=== PATIENT | female | born 1990 | race Caucasian/White ===

== ENCOUNTER 2019-05-23 07:39 | Day surgery (SDC) | payer SELFPAY ==
[2019-05-20 14:02] LABS: Hematocrit 40.6 % (33.0-51.0); Hemoglobin 13.5 g/dL (11.5-16.0); Mean Corpuscular HGB 28.9 pg (26.0-34.0); Mean Corpuscular HGB Conc 33.3 g/dL (31.5-36.5); Mean Corpuscular Volume 87 fL (80-100); Mean Platelet Volume 11.4 fL (9.1-12.4); Platelet Count 226 K/mm3 (150-400); RDW Coefficient Variation 12.6 % (11.7-14.2); RDW Standard Deviation 39.9 fL (35.1-46.3); Red Blood Cell Count 4.67 M/mm3 (3.80-5.20); White Blood Cell Count 9.21 K/mm3 (4.00-11.30)
[~2019-05-23] VITALS: Ht 162.6 cm; Wt 109.5 kg
[~2019-05-23 07:39] MED LIST: BC PILL; BCP; BUSP10 PO; BUSP5 PO; CYCL10; DOXY100 PO; FAMO20 PO; FERSU300 PO; HYDACE5 PO; HYDMOR2 PO; IBUP400 PO; IBUP800 PO; LOPE2C PO; META800 PO; MULVITMINE PO; NAPR500 PO; ONDA4 PO; OXYACE5T PO; PHENA200 PO; PRED20 PO; PROM25 PO; PSEHYDGUAL PO; RXONDA4ODT MM; SULTRIDS PO; VENL150ER PO; Vitamin D2000 UNIT PO; [UNRECOGNIZED DRUG - OTHER] PO
--- NOTE | 2019-05-23 08:31 | NUR ---
History, Chart, Medications and Allergies reviewed before start of procedure. PT HAS EAR STUDS AND TWO NOSE RINGS THAT SHE STATES CANNOT BE REMOVED AND WOULD LIKE TO TAPE THEM FOR SURGERY. REFUSAL FORM SIGNED.
--- NOTE | 2019-05-23 19:00 | NUR ---
recvd report from previous RN Ines. pt sitting up in bed, tolerating soup, family visiting. pt a/0 x 4, pleasant, denies nausous
--- NOTE | 2019-05-23 19:15 | NUR ---
PT IS POST-OP LAVH. VSS DURING SHIFT. PT HAD DIFFICULTY WITH NAUSEA AND CRAMPING. MEDICATED PER EMAR AND PROVIDED KPAD. NAUSEA AND PAIN GREATLY IMPROVED AFTER INTERVENTIONS AND WAS ABLE TO HAVE A LIGHT MEAL.
--- NOTE | 2019-05-23 20:05 | NUR ---
PT NAUSEOUS/VOMITED X 2 300 ML. HAD ADMINISTERED PO PHENERGAN WITHIN 15 MINUTES PRIOR, NO TABLET VISUALIZED. PT REMAINS NAUSEOUS, WILL MEDICATE PER MAR
[2019-05-24 04:54] LABS: BASOPHILS ABSOLUTE AUTO 0.02 K/mm3 (0.00-0.23); BASOPHILS PERCENT AUTO 0 % (0-2); EOSINOPHILS ABSOLUTE AUTO 0.01 K/mm3 (0.00-0.68); EOSINOPHILS PERCENT AUTO 0 % (0-6); Hematocrit 32.9 % (33.0-51.0); Hemoglobin 10.8 g/dL (11.5-16.0); IMMATURE GRAN ABSOLUTE AUTO 0.04 K/mm3 (0.00-0.10); IMMATURE GRAN PERCENT AUTO 0 % (0-1); LYMPHOCYTES ABSOLUTE AUTO 1.35 K/mm3 (0.84-5.20); LYMPHOCYTES PERCENT AUTO 12 % (21-46); MONOCYTES ABSOLUTE AUTO 0.98 K/mm3 (0.16-1.47); MONOCYTES PERCENT AUTO 9 % (4-13); Mean Corpuscular HGB 28.8 pg (26.0-34.0); Mean Corpuscular HGB Conc 32.8 g/dL (31.5-36.5); Mean Corpuscular Volume 88 fL (80-100); Mean Platelet Volume 11.1 fL (9.1-12.4); NEUTROPHILS ABSOLUTE AUTO 8.74 K/mm3 (1.96-9.15); NEUTROPHILS PERCENT AUTO 78 % (41-73); Platelet Count 217 K/mm3 (150-400); RDW Coefficient Variation 12.7 % (11.7-14.2); RDW Standard Deviation 40.2 fL (35.1-46.3); Red Blood Cell Count 3.75 M/mm3 (3.80-5.20); White Blood Cell Count 11.14 K/mm3 (4.00-11.30)
--- NOTE | 2019-05-24 05:51 | NUR ---
shift summary: vss, no acute changes, pt remains a/0 x 4, pleasant cooperative. pt reports nauseousness and vomiting x 1 at start of shift, medicated per mar with report of relief of nausea. pt reports pain controlled to 2-3/10 per mar. pt up in room x 2, reports no dizziness, slight lightheadedness when first standing, standby assist. pt appears to be sleeping on nurse rounding a great portion of the shift, awakens easily. pt's stayed in room with pt.
[2019-05-24] MEDS ORDERED: Percocet 5-3251 EACH PO (10:44)
[2019-05-24] MEDS ORDERED: PROM25 PO (10:50)
[2019-05-24] MEDS ORDERED: IBU800 MG PO (10:50)
[2019-05-24] MEDS ORDERED: DOCU100 PO (10:51)
[2019-05-24] MEDS ORDERED: Milk Of Ma400 MG/5 M PO (11:29)
--- NOTE | 2019-05-24 12:15 | NUR ---
DISCHARGE PT ESCORTE OUT VIA W/C. PT STATES UNDERSTANDING. PAIN WELL CONTROLLED, VOIDING EASILY, SCANT BLEEDING, PASSING GAS. STATES FEELS READY FOR D/C.
--- NOTE | 2019-05-26 09:50 | NUR ---
05/26/[address] CAME IN FOR HER PORTION OF CASE TO COMPLETE TVT AND CYSTOSCOPY.
== END 2019-05-24 12:20 | disposition home or self-care (01) ==
LOC: ORSCMMR 07:39 → ORD 09:00 → ORSCMMR 09:00 → SURS 13:56 → ORSCMMR 05-24 12:20
PROVIDERS: Obstetrics & Gynecology
PROC: 0UT9FZZ Resection of Uterus, Via Natural or Artificial Opening With Percutaneous Endoscopic Assistance (ICD-10-PCS; principal; 2019-05-23 09:00)
PROC: 0UT7FZZ Resection of Bilateral Fallopian Tubes, Via Natural or Artificial Opening With Percutaneous Endoscopic Assistance (ICD-10-PCS; principal; 2019-05-23 09:00)
PROC: 0TSD0ZZ Reposition Urethra, Open Approach (ICD-10-PCS; principal; 2019-05-23 09:00)
DX: N92.1 Excessive and frequent menstruation with irregular cycle (principal); N39.3 Stress incontinence (female) (male); N94.6 Dysmenorrhea, unspecified; E66.01 Morbid (severe) obesity due to excess calories; Z68.41 Body mass index [BMI] 40.0-44.9, adult
CPT/HCPCS: 36415; 84703; 85025; 85027; 86850; 86900; 86901; 88307; C1771; J0171; J0690; J1100; J1885; J2250; J2405; J2550; J2704; J3010; J7030; J7120

== ENCOUNTER 2019-06-25 11:06 | Emergency (ER) | payer SELFPAY ==
[~2019-06-25] VITALS: Ht 165.1 cm; Wt 111.1 kg
[~2019-06-25 11:06] MED LIST changes: +DOCU100 PO; +IBU800 MG PO; +Milk Of Ma400 MG/5 M PO; +Percocet 5-3251 EACH PO
[2019-06-25] MEDS ORDERED: Augmentin 875-1 EACH PO (11:34)
[2019-06-25] MEDS ORDERED: METR500 PO (11:35)
[2019-06-25 12:14] LABS: Source, Urine Clean Catch
[2019-06-25 12:18] LABS: Bilirubin, Urine Neg (Neg); Blood, Urine Neg (Neg); Glucose Qualitative, Urine Neg (Neg); Ketones, Urine Neg (Neg); Leukocyte Esterase, Urine 2+ (Neg); Nitrite, Urine Neg (Neg); Protein, Urine Neg (Neg); Urobilinogen, Urine NORM (Normal); pH, Urine 6.5 (5.0-8.0)
[2019-06-25 12:46] LABS: BASOPHILS ABSOLUTE AUTO 0.04 K/mm3 (0.00-0.23); BASOPHILS PERCENT AUTO 0 % (0-2); EOSINOPHILS PERCENT AUTO 1 % (0-6); Hematocrit 40.1 % (33.0-51.0); Hemoglobin 12.9 g/dL (11.5-16.0); IMMATURE GRAN ABSOLUTE AUTO 0.03 K/mm3 (0.00-0.10); IMMATURE GRAN PERCENT AUTO 0 % (0-1); LYMPHOCYTES ABSOLUTE AUTO 1.53 K/mm3 (0.84-5.20); LYMPHOCYTES PERCENT AUTO 15 % (21-46); MONOCYTES ABSOLUTE AUTO 0.67 K/mm3 (0.16-1.47); MONOCYTES PERCENT AUTO 6 % (4-13); Mean Corpuscular HGB 28.5 pg (26.0-34.0); Mean Corpuscular HGB Conc 32.2 g/dL (31.5-36.5); Mean Corpuscular Volume 89 fL (80-100); Mean Platelet Volume 11.5 fL (9.1-12.4); NEUTROPHILS ABSOLUTE AUTO 8.13 K/mm3 (1.96-9.15); NEUTROPHILS PERCENT AUTO 77 % (41-73); Platelet Count 232 K/mm3 (150-400); RDW Standard Deviation 42.3 fL (35.1-46.3); Red Blood Cell Count 4.53 M/mm3 (3.80-5.20)
[2019-06-25 12:51] LABS: Appearance, Urine Clear (Clear); Color, Urine Yellow (P-Yellow)
[2019-06-25 12:53] LABS: Bacteria Few /hpf; Red Blood Cells, Urine 0-2 /hpf (0-2); Squamous Epithelial Cells Few /hpf (Few)
[2019-06-25 12:54] LABS: Yeast/Fungi Urine Few /hpf
[2019-06-25 13:05] LABS: Alanine Aminotransfer (ALT/SGP 33 U/L (12-78); Albumin, Blood 3.8 g/dL (3.4-5.0); Albumin/Globulin Ratio 1.1 (0.8-1.8); Alk Phos 110 U/L (50-136); Anion Gap 6 mmol/L (6-16); Aspartate Aminotrans (AST/SGOT 15 U/L (12-37); Bilirubin, Total 0.3 mg/dL (0.1-1.0); Blood Urea Nitrogen 10 mg/dL (8-24); Bun/Creatinine Ratio 13.9 (12.0-20.0); CO2, Blood 26 mmol/L (21-32); Calcium, Blood 8.6 mg/dL (8.5-10.1); Chloride, Blood 106 mmol/L (98-108); Creatinine, Blood 0.72 mg/dL (0.40-1.00); Globulin, Blood 3.6 g/dL (2.2-4.0); Glomerular Filtration Rate >60 (60-); Glucose, Blood 107 mg/dL (70-99); Potassium, Blood 3.8 mmol/L (3.5-5.5); Sodium, Blood 138 mmol/L (136-145); Total Protein, Blood 7.4 g/dL (6.4-8.2)
[2019-06-25 13:58] LABS: Adenovirus F 40/41 Not Detected (NOT DETECT); Astrovirus Not Detected (NOT DETECT); Campylobacter Sp Not Detected (NOT DETECT); Cryptosporidium Not Detected (NOT DETECT); Cyclospora Cayetanensis Not Detected (NOT DETECT); E. Coli O157 Not Detected (NOT DETECT); Entamoeba Histolytica Not Detected (NOT DETECT); Enteroaggregative E. coli-EAEC Not Detected (NOT DETECT); Enteropathogenic E. coli-EPEC Not Detected (NOT DETECT); Enterotoxigenic E. coli-ETEC Not Detected (NOT DETECT); Giardia Lamblia Not Detected (NOT DETECT); Norovirus GI/GII Not Detected (NOT DETECT); Plesiomonas Shigelloides Not Detected (NOT DETECT); Rotavirus A Not Detected (NOT DETECT); Salmonella Sp Not Detected (NOT DETECT); Sapovirus Not Detected (NOT DETECT); Shiga Toxin-prod E. coli-STEC Not Detected (NOT DETECT); Shigella/Enteroin E. coli-EIEC Not Detected (NOT DETECT); Vibrio Cholerae Not Detected (NOT DETECT); Vibrio Sp Not Detected (NOT DETECT); Yersinia Enterocolitica Not Detected (NOT DETECT)
[2019-06-25] MEDS ORDERED: Percocet 5-3251 EACH PO (14:13)
[2019-06-26] MEDS ORDERED: Bentyl20 MG PO (02:37)
== END 2019-06-25 14:32 | disposition home or self-care (01) ==
LOC: ER 11:06
PROVIDERS: Emergency Medicine
DX: K52.9 Noninfective gastroenteritis and colitis, unspecified (principal); R10.12 Left upper quadrant pain; F41.9 Anxiety disorder, unspecified; Z88.5 Allergy status to narcotic agent; Z79.899 Other long term (current) drug therapy
CPT/HCPCS: 0097U; 36415; 74176; 80053; 81001; 83690; 85025; 96361; 96374; 99284-25; J1885; J7120

== ENCOUNTER 2019-06-25 21:21 | Emergency (ER) | payer SELFPAY ==
[~2019-06-25] VITALS: Ht 165.1 cm; Wt 111.1 kg
[~2019-06-25 21:21] MED LIST changes: +Augmentin 875-1 EACH PO; +METR500 PO
[2019-06-26 02:03] LABS: BASOPHILS ABSOLUTE AUTO 0.02 K/mm3 (0.00-0.23); BASOPHILS PERCENT AUTO 0 % (0-2); EOSINOPHILS ABSOLUTE AUTO 0.02 K/mm3 (0.00-0.68); EOSINOPHILS PERCENT AUTO 0 % (0-6); Hematocrit 40.8 % (33.0-51.0); Hemoglobin 12.9 g/dL (11.5-16.0); IMMATURE GRAN ABSOLUTE AUTO 0.04 K/mm3 (0.00-0.10); IMMATURE GRAN PERCENT AUTO 0 % (0-1); LYMPHOCYTES PERCENT AUTO 9 % (21-46); MONOCYTES ABSOLUTE AUTO 0.75 K/mm3 (0.16-1.47); MONOCYTES PERCENT AUTO 5 % (4-13); Mean Corpuscular HGB 28.3 pg (26.0-34.0); Mean Corpuscular HGB Conc 31.6 g/dL (31.5-36.5); Mean Corpuscular Volume 90 fL (80-100); Mean Platelet Volume 11.5 fL (9.1-12.4); NEUTROPHILS ABSOLUTE AUTO 12.81 K/mm3 (1.96-9.15); NEUTROPHILS PERCENT AUTO 85 % (41-73); Platelet Count 230 K/mm3 (150-400); RDW Coefficient Variation 13.1 % (11.7-14.2); RDW Standard Deviation 42.7 fL (35.1-46.3); Red Blood Cell Count 4.56 M/mm3 (3.80-5.20); White Blood Cell Count 15.04 K/mm3 (4.00-11.30)
[2019-06-26] MEDS ORDERED: Bentyl20 MG PO (02:37)
== END 2019-06-26 02:57 | disposition home or self-care (01) ==
LOC: ER 21:21
PROVIDERS: Emergency Medicine
DX: K52.9 Noninfective gastroenteritis and colitis, unspecified (principal); D72.829 Elevated white blood cell count, unspecified; Z88.5 Allergy status to narcotic agent; Z79.899 Other long term (current) drug therapy
CPT/HCPCS: 36415; 85025; 96374; 99283; A9270; J1885

== ENCOUNTER 2022-06-27 00:15 | Emergency (ER) | payer SELFPAY ==
[~2022-06-27] VITALS: Ht 165.1 cm; Wt 95.2 kg
[~2022-06-27 00:15] MED LIST changes: +Bentyl20 MG PO
[2022-06-27] MEDS ORDERED: EPIPEN0.3 MG/0.3 IM (00:56)
[2022-06-27] MEDS ORDERED: Prednisone20 MG PO (00:56)
== END 2022-06-27 03:37 | disposition home or self-care (01) ==
LOC: ER 00:15
DX: L50.0 Allergic urticaria (principal); T37.3X5A Adverse effect of other antiprotozoal drugs, initial encounter; Z88.5 Allergy status to narcotic agent; Z79.899 Other long term (current) drug therapy
CPT/HCPCS: J1200; J2930; J7512

== ENCOUNTER 2022-06-27 11:49 | Emergency (ER) | payer SELFPAY ==
[~2022-06-27] VITALS: Ht 165.1 cm; Wt 95.2 kg
[~2022-06-27 11:49] MED LIST changes: +EPIPEN0.3 MG/0.3 IM; +Prednisone20 MG PO
== END 2022-06-27 13:59 | disposition home or self-care (01) ==
LOC: ER 11:49
DX: L50.0 Allergic urticaria (principal); T36.8X5A Adverse effect of other systemic antibiotics, initial encounter; Z88.5 Allergy status to narcotic agent; Z88.2 Allergy status to sulfonamides; Z88.8 Allergy status to other drugs, medicaments and biological substances; Z79.899 Other long term (current) drug therapy
CPT/HCPCS: A9270; J1200; J2930

== ENCOUNTER 2024-03-02 08:18 | Emergency (ER) | payer SELFPAY ==
[~2024-03-02] VITALS: Ht 165.1 cm; Wt 94.3 kg
[~2024-03-02 08:18] MED LIST changes: +VENL75ER PO
[2024-03-02 09:53] LABS: Source, Urine Clean Catch
[2024-03-02 10:01] LABS: Appearance, Urine Clear (Clear); Bilirubin, Urine Neg (Neg); Blood, Urine Neg (Neg); Color, Urine Yellow (P-Yellow); Glucose Qualitative, Urine Neg (Neg); Ketones, Urine Neg (Neg); Leukocyte Esterase, Urine Neg (Neg); Nitrite, Urine Neg (Neg); Protein, Urine Neg (Neg); Specific Gravity, Urine 1.015 (1.003-1.022); Urobilinogen, Urine NORM (Normal)
[2024-03-02] MEDS ORDERED: Ondansetron HCl 2 MG / ML 2ML Vial IV ONE (10:10)
[2024-03-02] MEDS ORDERED: NS 1,000 ML IV SCH (10:10)
[2024-03-02] MEDS ORDERED: Ketorolac Tromethamine 30mg Vial IV ONE (10:10)
[2024-03-02 10:11] LABS: BASOPHILS ABSOLUTE AUTO 0.04 K/mm3 (0.00-0.23); BASOPHILS PERCENT AUTO 1 % (0-2); EOSINOPHILS ABSOLUTE AUTO 0.06 K/mm3 (0.00-0.68); EOSINOPHILS PERCENT AUTO 1 % (0-6); Hematocrit 43.7 % (33.0-51.0); IMMATURE GRAN ABSOLUTE AUTO 0.03 K/mm3 (0.00-0.10); IMMATURE GRAN PERCENT AUTO 1 % (0-1); LYMPHOCYTES ABSOLUTE AUTO 1.36 K/mm3 (0.84-5.20); LYMPHOCYTES PERCENT AUTO 22 % (21-46); MONOCYTES PERCENT AUTO 6 % (4-13); Mean Corpuscular HGB 31.1 pg (26.0-34.0); Mean Corpuscular HGB Conc 34.3 g/dL (31.5-36.5); Mean Corpuscular Volume 91 fL (80-100); Mean Platelet Volume 11.4 fL (9.1-12.4); NEUTROPHILS ABSOLUTE AUTO 4.38 K/mm3 (1.96-9.15); NEUTROPHILS PERCENT AUTO 70 % (41-73); Platelet Count 169 K/mm3 (150-400); RDW Coefficient Variation 12.4 % (11.7-14.2); RDW Standard Deviation 40.8 fL (35.1-46.3); Red Blood Cell Count 4.83 M/mm3 (3.80-5.20); White Blood Cell Count 6.27 K/mm3 (4.00-11.30)
[2024-03-02 10:38] LABS: Albumin/Globulin Ratio 1.2 (0.8-1.8); Bilirubin, Total 0.2 mg/dL (0.1-1.0); Bun/Creatinine Ratio 17.9 (12.0-20.0); Calcium, Blood 8.5 mg/dL (8.5-10.1); Creatinine, Blood 0.73 mg/dL (0.40-1.00); Globulin, Blood 3.4 g/dL (2.2-4.0); Potassium, Blood 4.2 mmol/L (3.5-5.5); Total Protein, Blood 7.4 g/dL (6.4-8.2)
[2024-03-02 11:24] VITALS: BP 100/63
== END 2024-03-02 11:25 | disposition home or self-care (01) ==
LOC: ER 08:18
PROVIDERS: Physician Assistant
DX: R10.31 Right lower quadrant pain (principal); Z90.710 Acquired absence of both cervix and uterus; Z79.899 Other long term (current) drug therapy; Z88.5 Allergy status to narcotic agent; Z88.1 Allergy status to other antibiotic agents; Z88.8 Allergy status to other drugs, medicaments and biological substances
CPT/HCPCS: 74177; 80053; 81003; 83690; 85025; 96361; 96374-59; 96375; 99284-25; J1885; J2405; J7030; Q9967

== ENCOUNTER 2025-08-01 12:20 | Emergency (ER) | payer OTHER ==
[~2025-08-01] VITALS: Ht 165.1 cm; Wt 102.1 kg
[2025-08-01 12:56] VITALS: BP 146/81
== END 2025-08-01 14:20 | disposition home or self-care (01) ==
LOC: ER 12:20
DX: M79.661 Pain in right lower leg (principal); Z98.890 Other specified postprocedural states; Z59.89 Other problems related to housing and economic circumstances
CPT/HCPCS: 93971; 99283-25